=== PATIENT | female | born 1985 | race Caucasian/White ===

== ENCOUNTER 2017-05-13 21:52 | Emergency (ER) | payer SELFPAY | END 2017-05-13 23:21 | disposition home or self-care (01) | LOC: D.ER 21:52 | DX: S90.31XA Contusion of right foot, initial encounter (principal); W20.8XXA Other cause of strike by thrown, projected or falling object, initial encounter; Y93.89 Activity, other specified; Y92.89 Other specified places as the place of occurrence of the external cause; F17.200 Nicotine dependence, unspecified, uncomplicated ==